=== PATIENT | female | born 1950 | race African-American/Black ===

== ENCOUNTER 2017-08-09 14:16 | Emergency (ER) | payer OTHER, MEDICARE ==
[2017-08-09 15:27] LABS: #Basophils 0.1 thou/uL (0.0-0.2); #Eosinphils 0.1 thou/uL (0.0-0.7); #Lymphocytes 2.8 thou/uL (1.20-3.40); #Monocytes 0.7 thou/uL (0.11-0.59); #Neutrophils 4.4 thou/uL (1.40-6.50); %Basophils 0.9 % (0.0-1.0); %Eosinophils 1.2 % (0.0-10.0); %Lymphocytes 34.8 % (21.0-51.0); %Monocytes 8.5 % (0.0-10.0); Hematocrit 43.4 % (36.0-47.0); Mean Platelet Volume 9.4 fL (7.4-10.4); Red Blood Cell (RBC) Count 4.75 mill/uL (4.20-5.40); White Blood Cell (WBC) Count 8.1 thou/uL (4.8-10.8)
[2017-08-09 15:33] LABS: PTT 31.7 SEC (22.9-36.1); Prothrombin Time 12.6 SEC (12.0-14.7)
[2017-08-09] MEDS ORDERED: Metoprolol Tartrate 5 MG/5 ML VIAL ONE (15:35)
[2017-08-09 15:50] LABS: ALT (SGPT) 13 U/L (8-55); AST (SGOT) 12 U/L (5-34); Alkaline Phosphatase 96 U/L (40-150); Anion Gap 16 mmol/L (10-20); BUN (Urea Nitrogen) 14 mg/dL (9.8-20.1); Bilirubin, Total 0.2 mg/dL (0.2-1.2); CK (CPK) 44 U/L (29-168); Calc. Creatinine Clearance 0 mL/min (70-130); Carbon Dioxide 24 mmol/L (23-31); Chloride 103 mmol/L (98-107); Estimated GFR-MDRD 74; Globulin 4.1 g/dL (2.4-3.5)
[2017-08-09 15:54] LABS: Troponin I Less than 0.010 ng/mL (< 0.028)
--- NOTE | 2017-08-09 16:15 | RAD ---
CHEST 1 VIEW: Date: 08/09/17 HISTORY: Emergency exam. Chest pain. COMPARISON: CT chest dated 04/27/17. Chest 1 view dated 02/03/17. FINDINGS: Heart size is enlarged with increased epicardial fat. Cephalization of pulmonary vasculature. IMPRESSION: Cephalization of pulmonary vasculature suggests early congestive heart failure or early volume overl oad. POS: [facility]
[2017-08-09] MEDS ORDERED: HYDROcodone/Acetaminophen 5/325 mg Tablet ONE (16:23)
[2017-08-09 16:59] LABS: Bilirubin Small (Negative); Blood, Urine Negative (Negative); Glucose, Urine (Dipstick) Negative (Negative); Ketone, Urine Negative (Negative); Nitrite Negative (Negative); Protein, Urine (Dipstick) Negative (Neg-Trace); Urobilinogen 0.2 mg/dL (0.2-1.0)
--- OUTSIDE RECORDS SUMMARY | 2017-08-14 20:09 | XMS | Clinical Summary ---
:1950 Author Organization [facility] Address [address] [place] [address] Phone Care Team Providers Name Role Phone , Primary Care Provider Unavailable Allergies Not on File Current Medications Not on file Active Problems Not on file Social History Tobacco Use Types Packs/Day Years Used Date Never Assessed Sex Assigned at Date Recorded Not on file Last Filed Vital Signs Not on file Plan of Treatment Not on file Results Not on filefrom Last 3 Months
== END 2017-08-09 17:47 | disposition home or self-care (01) ==
LOC: ERS 14:16
DX: R00.0 Tachycardia, unspecified (principal); J44.9 Chronic obstructive pulmonary disease, unspecified; K21.9 Gastro-esophageal reflux disease without esophagitis; E78.5 Hyperlipidemia, unspecified; I10 Essential (primary) hypertension; G62.9 Polyneuropathy, unspecified; F41.9 Anxiety disorder, unspecified; F17.210 Nicotine dependence, cigarettes, uncomplicated; Z79.899 Other long term (current) drug therapy; Z79.891 Long term (current) use of opiate analgesic
CPT/HCPCS: 71010; 80053; 81003; 82553; 83880; 84484; 85025; 85610; 85730; 93005; 96374

== ENCOUNTER 2017-11-08 10:12 | Outpatient (CLI) | payer MEDICARE ==
[~2017-11-08 10:12] MED LIST: Gadobenate Dimeglumine 529 MG/ML (10ML VIAL) ONE
--- NOTE | 2017-11-08 12:44 | MRI ---
MRI LUMBAR SPINE WITH AND WITHOUT CONTRAST: Multiplanar, multisequential imaging lumbar spine obtained. HISTORY: Back pain. Prior back surgery in 2017. Radiation to right lower extremity. FINDINGS: Motion artifact degrades the sequences. The sequences are also degraded due to large body habitus wh ich attenuates signal. The lumbar vertebrae maintain height and alignment. Disk spaces are preserved. Facet hypertrophy at all levels. Slight anterolisthesis at L3-4 with a broad-based disk bulge flattening the thecal sac. Facet hypertrophy is present. Moderate central canal stenosis. At L4-5, disk bulge combined with facet and ligamentous hypertrophy results in mild central canal paola nosis. At L5-S1, minimal disk bulge. No significant central canal stenosis. No abnormal enhancement identified. IMPRESSION: 1. Limited study due to artifact as described above. 2. Evidence of moderate central canal stenosis at L3-4 as described above. Mild central canal steno sis at L4-5 as described above. POS: [facility]
== END 2017-11-08 10:13 | disposition home or self-care (01) ==
LOC: SCSMRI 10:12
PROVIDERS: ATTEND Anesthesiology Pain Medicine
DX: M54.16 Radiculopathy, lumbar region (principal); M48.061 Spinal stenosis, lumbar region without neurogenic claudication
CPT/HCPCS: 72158; 82565

== ENCOUNTER 2017-12-17 06:35 | Outpatient (CLI) | payer MEDICARE ==
--- NOTE | 2017-12-17 09:20 | ULT ---
ULTRASOUND THYROID STANDARD: Date: 12/17/17 HISTORY: Thyrotoxicosis. COMPARISON: None. FINDINGS: Isthmus measures 4.0 mm in AP dimension. Right lobe measures 4.9 x 1.0 x 2.6 cm. Left lobe measures 4 .0 x 2.2 x 2.3 cm. There is a 5.0 mm colloid nodule interpolar left lobe of thyroid. The echotexture is extensively heterogeneous. IMPRESSION: 1. Mild increased vascular flow, as well as very heterogeneous echotexture suggesting chronic thyroi ditis such as Graves' disease. Clinical correlation of lab values. 2. Colloid nodule interpolar left lobe of thyroid. POS: [facility]
--- NOTE | 2017-12-18 11:06 | NM ---
RADIO IODINE UPTAKE AND SCAN: HISTORY: Hyperthyroidism with elevated T4 and T3 levels and low TSH level. RADIOPHARMACEUTICAL: 280 uCi Iodine-123 administered orally. FINDINGS: Planar anterior and both anterior oblique images of the thyroid gland were obtained. There is diffus e enlargement of the thyroid gland with homogeneous tracer distribution. No focal cold or hard nodul es are seen. The 24-hour uptake measures 78% (normal 10-30%). IMPRESSION: Hyperthyroid Grave's disease. POS: [facility]
== END 2017-12-17 06:36 | disposition home or self-care (01) ==
LOC: ULT 06:35
PROVIDERS: ATTEND Internal Medicine
DX: E05.90 Thyrotoxicosis, unspecified without thyrotoxic crisis or storm (principal); E05.00 Thyrotoxicosis with diffuse goiter without thyrotoxic crisis or storm; E04.1 Nontoxic single thyroid nodule
CPT/HCPCS: 76536; 78014; A9516

== ENCOUNTER → 2017-12-20 | Day surgery (SDC) | payer MEDICARE ==
[2017-12-20 07:25] VITALS: TEMP 99.4; BMI 32.2
--- NOTE | 2017-12-20 11:11 | RAD ---
LUMBAR SPINE MYELOGRAM: History: Lumbar radiculopathy. Spinal stenosis. Comparison: None. FINDINGS: A lumbar spine radiographic series performed earlier today with suffice as the rebar bender radiograph. Base d on that image, there is anterolisthesis of L3 upon L4. There are five lumbar type vertebral bodies. Please refer to separate report for further detail. Successful lumbar puncture for intrathecal contrast administration. A total of 10 cc of Isovue 200M c ontrast was administered intrathecally. Patient tolerated the procedure well. No immediate or post pr ocedure complication. Technique: Consent obtained to perform a lumbar puncture under fluoroscopic guidance for intrathecal contrast ad ministration. Patient's back was evaluated. The L3-4 level was deemed appropriate. Skin was prepped a nd draped in sterile fashion. 1% Lidocaine buffered with sodium bicarbonate used for local anesthesia . Under fluoroscopic guidance, a 22 gauge spinal needle was advanced through the CSF space. Inter sty let was removed. There was prompt flow of clear CSF through the needle. Via short tubing catheter, a total of 10 cc of Isovue 200M contrast was administered intrathecally. Patient tolerated the procedur e well. No immediate or post procedure complication. Exposure: 0.4 minutes. 472.8 mGy*cm^2. IMPRESSION: Successful lumbar puncture for intrathecal contrast administration. POS: [facility]
--- NOTE | 2017-12-20 11:24 | CT ---
CT LUMBAR SPINE MYELOGRAM CT LUMBAR SPINE WITH CONTRAST: Clinical history: Lumbar spine stenosis, low back pain. FINDINGS: Vertebral body heights and alignment are maintained within the lumbar spine. The conus medullaris ter minates at the T12-L1 level, normal in morphology. There is incidental note of atherosclerotic vascul ar calcification within the imaged retroperitoneum. L5-S1: There is no high grade central canal stenosis. There is a broad based disc osteophyte which mi ldly narrowed each neural foramen. L4-5: Moderate central canal stenosis on the basis of broad based disc osteophyte with mild narrowing of each neural foramen. L3-4: Moderate central canal stenosis on the basis of broad based disc osteophyte. Trace spondylolist hesis is suggested. There is mild narrowing of each neural foramen. L2-3: There is mild to moderate left and mild right neural foraminal narrowing. L1-2: There is mild narrowing of the central canal. Mild disc osteophyte complex results in no signif icant foraminal stenosis. IMPRESSION: Mild degenerative change of the lumbar spine as outlined above. POS: [facility]
--- NOTE | 2017-12-20 12:51 | RAD ---
LUMBAR SPINE RADIOGRAPH SERIES FOUR VIEW SERIES INCLUDING FLEXION AND EXTENSION POSITIONING: Clinical history: Pain. FINDINGS: There is mild right convexity curvature of the lumbar spine. There is Grade I spondylolisthesis of L3 -4. No significant abnormal translational motion. IMPRESSION: Mild spondylolisthesis, without significant translational motion. POS: [facility]
== END ==
LOC: RAD 06:38
PROVIDERS: ATTEND Anesthesiology Pain Medicine
DX: M54.16 Radiculopathy, lumbar region (principal); M48.061 Spinal stenosis, lumbar region without neurogenic claudication; M43.16 Spondylolisthesis, lumbar region
CPT/HCPCS: 62304; 72100; 72132

== ENCOUNTER 2018-08-14 11:30 | Outpatient (CLI) | payer MEDICARE, OTHER | END 2018-08-14 11:31 | disposition home or self-care (01) | LOC: BICMAMMO 11:30 | PROVIDERS: ATTEND Internal Medicine | DX: Z12.31 Encounter for screening mammogram for malignant neoplasm of breast (principal) | CPT/HCPCS: 77063; 77067 ==

== ENCOUNTER 2019-03-10 09:16 | Outpatient (CLI) | payer MEDICARE, OTHER ==
--- NOTE | 2019-03-11 12:18 | NM ---
RADIOIODINE THYROID UPTAKE AND SCAN: Date: 03/10/19 HISTORY: Thyrotoxicosis with diffuse goiter without thyrotoxic crisis. RADIOPHARMACEUTICAL: 214 microcuries Iodine-123 administered orally. FINDINGS: Planar anterior and both anterior oblique images of the thyroid gland were obtained. There is diffuse enlargement of the thyroid gland with homogeneous tracer distribution. No focal cold or hot nodules are seen. 24-hour uptake measures 87% (normal 10-30%). IMPRESSION: Hyperthyroid Graves' disease. POS: [facility]
== END 2019-03-10 09:17 | disposition home or self-care (01) ==
LOC: NM 09:16
PROVIDERS: ATTEND Internal Medicine Endocrinology, Diabetes & Metabolism
DX: E05.00 Thyrotoxicosis with diffuse goiter without thyrotoxic crisis or storm (principal)
CPT/HCPCS: 78014; A9516

== ENCOUNTER 2019-03-12 15:57 | Outpatient (CLI) | payer MEDICARE, OTHER ==
--- NOTE | 2019-03-12 17:07 | CT ---
CT SCAN OF THE CHEST WITHOUT IV CONTRAST FOR LUNG CANCER SCREENING 03/12/19 HISTORY: Nicotine abuse 40+ years, one pack a day smoking history. FINDINGS: A calcified granuloma is seen in the right middle lobe. There is a 5 mm solid noncalcified nodule in the anterior aspect of the right upper lobe. A 5 mm solid perifissural nodule is seen anterolateral ly and another 7 mm perifissural nodule is seen in the right lower lobe. There is a 4 mm solid nodule in the superior segment of the left lower lobe in a left paraspinal location. There are vascular calcifications without evidence of aneurysmal dilatation of the thoracic aorta. No pleural or pericardial effusions are seen. There are degenerative changes in the spine. IMPRESSION: Lung RADS category 2. Nodules with a very low likelihood of becoming clinically active cancer. RECOMMENDATIONS: Continued annual screening with LDCT in 12 months. POS: [facility]
== END 2019-03-12 15:58 | disposition home or self-care (01) ==
LOC: CT 15:57
PROVIDERS: ATTEND Internal Medicine
DX: Z72.0 Tobacco use (principal); R91.8 Other nonspecific abnormal finding of lung field
CPT/HCPCS: G0297

== ENCOUNTER 2019-03-18 08:01 | Outpatient (CLI) | payer MEDICARE, OTHER ==
--- NOTE | 2019-03-18 11:22 | NM ---
NUCLEAR MEDICINE THYROID I-131 INITIAL TREATMENT: 03/18/19 HISTORY: 68-year-old female with hyperthyroid Graves' disease. Thyrotoxicosis with diffuse goiter without thy rotoxic crisis. RADIOIODINE THERAPY: After discussing the risks, benefits and alternatives with the patient, written and verbal consent wa s obtained for radioiodine therapy to treat Graves' disease. The patient verbalized understanding. 11.7 millicuries Iodine-131 were administered orally without complications. The patient will follow-up with Dr. Bahena. POS: [facility]
== END 2019-03-18 08:02 | disposition home or self-care (01) ==
LOC: NM 08:01
PROVIDERS: ATTEND Internal Medicine Endocrinology, Diabetes & Metabolism
DX: E05.00 Thyrotoxicosis with diffuse goiter without thyrotoxic crisis or storm (principal)
CPT/HCPCS: 79005; A9517 ×2

== ENCOUNTER 2019-04-16 11:55 | Day surgery (SDC) | payer MEDICARE, OTHER ==
[2019-04-15 12:56] VITALS: BMI 29.0
--- NOTE | 2019-04-16 08:08 | HP ---
HISTORY OF PRESENT ILLNESS: This is a 68-year-old female comes for an EGD and colonoscopy. The patient has history of melena and was found to have positive occult blood in the stool. The patient had abdominal pain. There is no nausea or vomiting. She has history of chronic back pain and was on NSAID_. This was stopped recently. The patient was placed on omeprazole subsequently after her recent GI bleeding. Subsequently, her stools returned back to normal color. Persistent abdominal pain. No nausea or vomiting. The patient is to have an EGD and colonoscopy because of history of dark stools and occult blood in the stool. ALLERGIES: NONE. SOCIAL HISTORY: The patient is a smoker of 1 pack per day. She does not drink alcohol. MEDICAL ILLNESSES: 1. Coronary artery disease. 2. Chronic back pain. 3. Sciatica. 4. Hypertension. 5. Hyperlipidemia. 6. Fibromyalgia. 7. Hypothyroidism status post radioactive iodine treatment in the past. 8. COPD. 9. Chronic acid reflux. 10. Hysterectomy. 11. She also had cervical spine surgery in the past. PHYSICAL EXAMINATION: VITAL SIGNS: Pulse is 73, blood pressure 120/70. HEENT: Conjunctivae clear. CARDIOVASCULAR: First and second heart sounds heard. LUNGS: Clear to auscultation. ABDOMEN: Soft. No organomegaly. No tenderness. No masses. Bowel sounds normal. ADMITTING DIAGNOSES: Melena, occult gastrointestinal bleeding. PLAN: EGD and colonoscopy. Job ID: [id number] [facility]
--- NOTE | 2019-04-16 18:46 | OP ---
DATE OF PROCEDURE: 04/16/2019 OPERATIVE PROCEDURE: Colonoscopy. PREOPERATIVE DIAGNOSES: Anemia, occult gastrointestinal bleeding, and family history of colon cancer. POSTOPERATIVE DIAGNOSES: Normal colonoscopy except for hemorrhoids. The prep was less than satisfactory. Some area could not be visualized. DESCRIPTION OF PROCEDURE: The patient was placed on her left lateral position and was given sedation by Anesthesia Department. A rectal exam was done before the scope was advanced into the rectum. No lesions felt on rectal exam. A Pentax videocolonoscope was introduced in the rectum and advanced all the way to the cecum. Right from the rectal opening, the patient had thick fecal material coating the mucosa. Water was irrigated and washed out extensively. I was able to reach the cecum without much difficulty. The appendicular opening, ileocecal wall, and cecum no pathology. Withdrawal of scope from the cecum, ascending colon, and hepatic flexure, no pathology. The patient had intermittent areas of liquid solid stool. I tried to irrigate and wash with the assistance of a pump. Some areas could not be completely done. No gross pathology seen in the transverse colon, splenic flexure, descending colon, and sigmoid colon. The rectum showed hemorrhoids. Job ID: [id number]
--- NOTE | 2019-04-17 09:05 | OP ---
DATE OF PROCEDURE: 04/16/2019 OPERATIVE PROCEDURES: Esophagogastroduodenoscopy with biopsy. PREOPERATIVE DIAGNOSES: A 68-year-old female with melena, anemia, and positive stool for occult blood. The patient takes meloxicam before, which has been discontinued. The patient is on omeprazole. The patient is undergoing esophagogastroduodenoscopy. POSTOPERATIVE DIAGNOSES: 1. Grade 2 esophagitis. 2. Small hiatal hernia. 3. Two ulcers mildly oozing of blood over the gastric antrum. The ulcer is healing. Normal duodenum. DESCRIPTION OF PROCEDURE: The patient was placed on her left lateral position and was given sedation by Anesthesia Department. A Pentax videogastroscope under direct vision passed down the oropharynx across the GE junction into the stomach and subsequently into the descending duodenum. The esophageal mucosa appeared normal in the upper two-thirds. Over this, the patient found to have esophagitis grade 2. The GE junction, no pathology. She has small hiatal hernia. The fundus and cardia, gastric body, no pathology seen. Over the gastric antrum, the patient appears to have two ulcerations, mild oozing of blood. The ulcers appears to be healing. The duodenal bulb and descending duodenum, no pathology. The stomach decompressed and the scope removed. DISCHARGE PLANNING: This is a 68-year-old female came for an EGD because of recent GI bleeding with black tarry stool. She also has a family history of colon cancer. The stool was positive for fecal occult blood. The patient underwent an EGD and was found to have two gastric ulcer and hiatal hernia. The colonoscope was negative, but however, the exam was suboptimal, . DISCHARGE RECOMMENDATION: 1. The patient advised increasing her omeprazole to 40 mg once a day. 2. She is advised to come back to me in 2 weeks for followup. Job ID: [id number]
== END 2019-04-16 16:05 | disposition home or self-care (01) ==
LOC: SDC 11:55
PROVIDERS: ATTEND Internal Medicine Gastroenterology
PROC: 0DB78ZX Excision of Stomach, Pylorus, Via Natural or Artificial Opening Endoscopic, Diagnostic (ICD-10-PCS; principal; 2019-04-16)
PROC: 0DJD8ZZ Inspection of Lower Intestinal Tract, Via Natural or Artificial Opening Endoscopic (ICD-10-PCS; 2019-04-16)
DX: K92.1 Melena (principal); D64.9 Anemia, unspecified; K64.9 Unspecified hemorrhoids; K29.51 Unspecified chronic gastritis with bleeding; K21.0 Gastro-esophageal reflux disease with esophagitis; K44.9 Diaphragmatic hernia without obstruction or gangrene; I25.10 Atherosclerotic heart disease of native coronary artery without angina pectoris; I10 Essential (primary) hypertension; E78.5 Hyperlipidemia, unspecified; M79.7 Fibromyalgia; E03.9 Hypothyroidism, unspecified; J44.9 Chronic obstructive pulmonary disease, unspecified; Z80.0 Family history of malignant neoplasm of digestive organs; Z90.710 Acquired absence of both cervix and uterus; Z79.891 Long term (current) use of opiate analgesic; Z79.899 Other long term (current) drug therapy
CPT/HCPCS: 43239; G0105; 88305; 88312

== ENCOUNTER 2023-07-26 17:00 | Outpatient (CLI) | payer MEDICARE | END 2023-07-26 17:01 | disposition home or self-care (01) | LOC: SLEEPLAB 17:00 | PROVIDERS: ATTEND Family Medicine | DX: G47.33 Obstructive sleep apnea (adult) (pediatric) (principal); R53.83 Other fatigue; E66.9 Obesity, unspecified; R06.83 Snoring; Z68.33 Body mass index [BMI] 33.0-33.9, adult | CPT/HCPCS: 95810 ==